=== PATIENT | male | born 1975 | race Caucasian/White ===

== ENCOUNTER 2016-02-14 11:37 | Emergency (ER) | payer SELFPAY ==
[~2016-02-14] VITALS: Wt 118.5 kg
[~2016-02-14 11:37] MED LIST: CLIN-73 PO; METH500T PO; NAPR375T PO; OXCA600T3 PO; ULT50 PO; VENL75TA2 PO
== END 2016-02-14 15:31 | disposition left against medical advice (07) ==
LOC: E/R 11:37
DX: Z53.21 Procedure and treatment not carried out due to patient leaving prior to being seen by health care provider (principal)

== ENCOUNTER 2016-03-15 19:42 | Emergency (ER) | payer OTHER ==
[~2016-03-15] VITALS: Ht 175.3 cm; Wt 117.0 kg
[~2016-03-15 19:42] MED LIST changes: +TRAM50TA2 PO; -ULT50 PO
[2016-03-15 19:59] VITALS: Ht 175.3 cm; Wt 117.0 kg
[2016-03-15] MEDS ORDERED: CYCL-319 PO (20:52)
[2016-03-15] MEDS ORDERED: HYDR-902 PO (20:52)
[2016-03-15] MEDS ORDERED: IBUP-1542 PO (20:52)
--- NOTE | 2016-03-15 20:58 | ERD ---
ER Documentation Chief Complaint Date/Time DATE: 03/15/16 TIME: 20:55 Chief Complaint lower back pain HPI 41-year-old male presents to emergency department for complaints of left lower back pain after lifting a heavy entertainment center at this afternoon. Patient describes the pain as throbbing pain, 8/10 scale, is worse upon movement accompanied with muscle spasms. Patient has history of degenerative disc disease , patient states that the shooting pain from the left lower back to the left lower leg area. Patient denies any numbness or tingling. Patient took Tylenol with Codeine with mild relief. Patient denies any incontinence. Patient denies any fever or chills. Patient denies any direct trauma or fall on affected area. ROS All systems reviewed and are negative except as per history of present illness. Medications Home Meds Active Scripts Hydrocodone/Acetaminophen ([place] 10-325 Tablet) 1 Each Tablet, 1 TAB PO Q6H Y for SEVERE PAIN LEVEL 7-10, #20 TAB Prov:ARLINE AGUILAR NP 03/15/16 Cyclobenzaprine Hcl* (Cyclobenzaprine Hcl*) 10 Mg Tablet, 10 MG PO TID, #30 TAB Prov:ARLINE AGUILAR MINK SLICER 03/15/16 Ibuprofen* (Motrin*) 600 Mg Tab, 600 MG PO Q6H Y for PAIN AND OR ELEVATED TEMP, #30 TAB Prov:ARLINE AGUILAR MINK SLICER 03/15/16 Tramadol HCl (Tramadol HCl) 50 Mg Tab, 50 MG PO Q6 Y for PAIN, #6 TAB Prov:ZANE MARTELL MD 08/10/14 Clindamycin Hcl* (Clindamycin Hcl*) 300 Mg Capsule, 300 MG PO TID for 10 Days, CAP Prov:ZANE MARTELL MD 08/10/14 Reported Medications Venlafaxine Hcl* (Effexor XR*) 75 Mg Tab.er.24, 75 MG PO DAILY, TAB.SA 01/18/14 Naproxen* (Naprosyn*) 375 Mg Tablet, 375 MG PO BID for PAIN, TAB 09/08/13 Methocarbamol* (Robaxin*) 500 Mg Tab, 500 MG PO Q6 Y for MUSCLE SPASMS, TAB 09/08/13 Oxcarbazepine* (Trileptal*) 600 Mg Tablet, 1800 MG PO QPM, TAB 09/08/13 Oxcarbazepine* (Trileptal*) 600 Mg Tablet, 1200 MG PO QAM, TAB 09/08/13 Allergies Allergies: Coded Allergies: Cephalexin Monohydrate (Verified Allergy, Unknown, 05/13/14) PMhx/Soc History of Surgery: No Anesthesia Reaction: No Hx Neurological Disorder: Yes (EPILEPSY) Hx Respiratory Disorders: No Hx Cardiac Disorders: No Hx Psychiatric Problems: No Hx Miscellaneous Medical Probl: Yes (CHRONIC BACK PAIN) Hx Alcohol Use: No Hx Substance Use: No Hx Tobacco Use: No FmHx Family History: No coronary disease, No diabetes, No other Physical Exam Vitals Vital Signs Date Time Temp Pulse Resp B/P Pulse Ox O2 Delivery O2 Flow Rate FiO2 03/15/16 19:59 98.3 86 18 162/70 98 Physical Exam GENERAL: The patient is well developed and appropriate for usual state of health, in no apparent distress. CHEST: Clear to auscultation bilaterally. There are no rales, wheezes or rhonchi. HEART: Regular rate and rhythm. No murmurs, clicks, rubs or gallops. No S3 or S4. ABDOMEN: Soft, nontender and nondistended. Good bowel sounds. No rebound or guarding. No gross peritonitis. No gross organomegaly or masses. No Arreaga sign or McBurney point tenderness. BACK: No midline or flank tenderness. Positive left straight leg test, muscle spasms noted in the paraspinal aspect of the left lumbar spine. EXTREMITIES: Equal pulses bilaterally. There is no peripheral clubbing, cyanosis or edema. No focal swelling or erythema. Full range of motion. Grossly neurovascularly intact. NEURO: Alert and oriented. Cranial nerves 2-12 intact. Motor strength in all 4 extremities with 5/5 strength. Sensation grossly intact. Normal speech and gait. SKIN: There is no apparent rash or petechia. The skin is warm and dry. HEMATOLOGIC AND LYMPHATIC: There is no evidence of excessive bruising or lymphedema. No gross cervical, axillary, or inguinal lymphadenopathy. Procedures/MDM Medical Decision Making: Patient's pain is most likely consistent with a back muscle strain, possibly with sciatica caused by possibly aggravated degenerative disc disease. There is no suspicion for neurovascular compromise. Patient has intact sensation and circulation of the distal extremity. There is low suspicion for septic arthritis. Patient does not have any fever. Radiology exams the indicated at this time. No suspicion for cauda equina syndrome, epidural hematoma, epidural abscess, or any acute bacterial infection. No incontinence noted. Disposition: Home. Patient is given prescription for ibuprofen for mild to moderate pain, [place] for severe pain, Flexeril for muscle spasms. Warm compresses on affected area. Avoid heavy lifting.Patient was advised that if symptoms are worse, numbness, tingling, high fever, unable to move joint, worsening symptoms, to return to emergency department immediately. Otherwise, patient is advised to follow up with the primary care doctor in 5-7 days for reevaluation of symptoms. Request MRI with primary care doctor if symptoms does not resolve. Departure Diagnosis: Primary Impression: Back pain Back pain location: low back pain Chronicity: acute Back pain laterality: left Sciatica presence: with sciatica Sciatica laterality: sciatica of left side Qualified Code: M54.42 - Acute left-sided low back pain with left-sided sciatica Condition: Stable Patient Instructions: Back Pain (Acute Or Chronic), Back Pain W/ Sciatica Additional Instructions: take meds as prescribed, request MRI with PMD if pain continues to persist ARLINE AGUILAR NP Mar 15, 2016 20:58
== END 2016-03-15 20:53 | disposition home or self-care (01) ==
LOC: E/R 19:42
DX: M54.42 Lumbago with sciatica, left side (principal)
CPT/HCPCS: 99284